=== PATIENT | female | born 1985 | race Caucasian/White ===

== ENCOUNTER 2020-06-17 11:06 | Emergency (ER) | payer BC ==
[2020-06-17] MEDS ORDERED: ONDANSETRON 4 MG/2 ML VIAL IVP STA (11:23)
[2020-06-17] MEDS ORDERED: SODIUM CHLORIDE 0.9% 500 ML 500 ML IV STA (11:23)
[2020-06-17 11:57] LABS: Basophils % (A) 0 %; Eosinophils # (A) 0.1 k/uL (0-0.7); Eosinophils % (A) 1 %; HCT 39.1 % (34.0-46.0); HGB 12.6 gm/dL (11.4-16.0); Lymphocytes % (A) 19 %; MCH 30.3 pg (25.0-35.0); MCHC 32.1 g/dL (31.0-37.0); MCV 94.2 fL (80.0-100.0); Mean Platelet Volume 7.2; Monocytes # (A) 0.4 k/uL (0-1.0); Monocytes % (A) 8 %; Neutrophils # (A) 3.7 k/uL (1.3-7.7); Neutrophils % (A) 68 %; Platelet Count 194 k/uL (150-450); RBC 4.15 m/uL (3.80-5.40); RDW 12.8 % (11.5-15.5); WBC 5.4 k/uL (3.8-10.6)
[2020-06-17 11:58] LABS: Appearance,Urine Clear (Clear); Bilirubin,Urine Negative (Negative); Blood,Urine Negative (Negative); Color,Urine Light Yellow; Glucose,Urine (UA) Negative (Negative); Ketones,Urine Negative (Negative); Leukocyte Esterase,Urine Negative (Negative); Nitrite,Urine Negative (Negative); Protein,Urine Negative (Negative); Specific Gravity,Urine 1.009 (1.001-1.035); Urobilinogen,Urine <2.0 mg/dL (<2.0)
--- NOTE | 2020-06-17 12:06 | ED ---
Abdominal Pain HPI - General Chief Complaint: Abdominal Pain Stated Complaint: abd pain/diarrhea Time Seen by Provider: 06/17/20 11:23 Source: patient Mode of arrival: ambulatory Limitations: no limitations - History of Present Illness Initial Comments: 35-year-old female presented today for chief complaint of diarrhea since Wednesday. Patient states she has had loose stool since Wednesday, she states she's had what she felt was a fever. Patient is not recorded temperature. Patient had one episode of vomiting she endorses nausea. Patient states that she has occasional right upper quadrant abdominal pain. That is not present currently. Patient denies any chest pain shortness of breath. She denies any rashes, or URI symptoms. Patient has no additional complaints. Upon arrival patient appears well there is no signs of acute distress. - Related Data Home Medications Medication Instructions Recorded Confirmed Hlo-Esxm-Brvbg Acid 1 tab PO DAILY 06/18/16 08/18/16 [-U Capsule (formulary)] Previous Rx's Medication Instructions Recorded Acetaminophen-Codeine 300-30mg 2 each PO Q4HR PRN #20 tab 08/20/16 [Tylenol w/codeine #3] Allergies Allergy/AdvReac Type Severity Reaction Status Date / Time No Known Allergies Allergy Verified 06/17/20 11:10 Review of Systems ROS Statement: Those systems with pertinent positive or pertinent negative responses have been documented in the HPI. ROS Other: All systems not noted in ROS Statement are negative. Past Medical History Past Medical History: Asthma History of Any Multi-Drug Resistant Organisms: MRSA Date of last positivie culture/infection: 08/22/19 MDRO Source:: KNEE Past Surgical History: Section Additional Past Surgical History / Comment(s): wisdom teeth Past Psychological History: No Psychological Hx Reported Smoking Status: Current every day smoker Past Alcohol Use History: Occasional Past Drug Use History: None Reported - Past Family History Mother Family Medical History: Hypertension Additional Family Medical History / Comment(s): osteopenia, hypertension Father Family Medical History: Congestive Heart Failure (CHF), COPD, Coronary Artery Disease (CAD), Hypertension Additional Family Medical History / Comment(s): hypertension, diabetes, chf, copd, emphysema, ex-smoker General Exam - General Exam Comments Initial Comments: General: The patient is awake and alert, in no distress Eye: Pupils are equal, round and reactive to light, extra-ocular movements are intact. No nystagmus. There is normal conjunctiva bilaterally. No signs of icterus. Ears, nose, mouth and throat: There are moist mucous membranes and no oral lesions. Neck: The neck is supple, there is no tenderness or JVD. Cardiovascular: There is a regular rate and rhythm. No murmur, rub or gallop is appreciated. Respiratory: Lungs are clear to auscultation, respirations are non-labored, br eath sounds are equal. No wheezes, stridor, rales, or rhonchi. Gastrointestinal: Soft, non-distended, mild RUQ tenderness, very minimal at this time, abdomen without masses or organomegaly noted. There is no rebound or guarding present. Musculoskeletal: Normal ROM, no tenderness. Strength 5/5. Sensation intact. Pulses equal bilaterally 2+. Neurological: A&O x 3. CN II-XII intact grossly, There are no obvious motor or sensory deficits. Coordination appears grossly intact. Speech is normal. Skin: Skin is warm and dry and no rashes or lesions are noted. Psychiatric: Cooperative, appropriate mood & affect, normal judgment. Limitations: no limitations Course Vital Signs 06/17/20 06/17/20 11:09 12:45 Temperature 98.5 F 99.3 F Pulse Rate 105 H 90 Respiratory 20 18 Rate Blood Pressure 103/64 104/62 O2 Sat by Pulse 99 99 Oximetry Medical Decision Making - Medical Decision Making Nontoxic well-appearing 35yo female present for diarrhea on and off abdominal pain of the upper quadrants. US RUQ (-) for GB disease, minimal to no pain on exam. States not currently occuring. Patient labs stable. HcG (-). Urine un remarkable. Patient nontoxic. Cannot provide stool sample. Patient given outpatient RX> Patient discharged appearing well. - Lab Data Result diagrams: 06/17/20 11:37 06/17/20 11:37 Lab Results 06/17/20 06/17/20 06/17/20 Range/Units 11:37 11:37 11:37 WBC 5.4 (3.8-10.6) k/uL RBC 4.15 (3.80-5.40) m/uL Hgb 12.6 (11.4-16.0) gm/dL Hct 39.1 (34.0-46.0) % MCV 94.2 (80.0-100.0) fL MCH 30.3 (25.0-35.0) pg MCHC 32.1 (31.0-37.0) g/dL RDW 12.8 (11.5-15.5) % Plt Count 194 (150-450) k/uL Neutrophils % 68 % Lymphocytes % 19 % Monocytes % 8 % Eosinophils % 1 % Basophils % 0 % Neutrophils # 3.7 (1.3-7.7) k/uL Lymphocytes # 1.0 (1.0-4.8) k/uL Monocytes # 0.4 (0-1.0) k/uL Eosinophils # 0.1 (0-0.7) k/uL Basophils # 0.0 (0-0.2) k/uL Sodium (137-145) mmol/L Potassium (3.5-5.1) mmol/L Chloride (98-107) mmol/L Carbon Dioxide (22-30) mmol/L Anion Gap mmol/L BUN (7-17) mg/dL Creatinine (0.52-1.04) mg/dL Est GFR (CKD-EPI)AfAm (>60 ml/min/1.73 sqM) Est GFR (CKD-EPI)NonAf (>60 ml/min/1.73 sqM) Glucose (74-99) mg/dL Calcium (8.4-10.2) mg/dL Total Bilirubin (0.2-1.3) mg/dL AST (14-36) U/L ALT (4-34) U/L Alkaline Phosphatase (38-126) U/L Total Protein (6.3-8.2) g/dL Albumin (3.5-5.0) g/dL Amylase (30-110) U/L Lipase (23-300) U/L Urine Color Light Yellow Urine Appearance Clear (Clear) Urine pH 7.0 (5.0-8.0) Ur Specific [place] 1.009 (1.001-1.035) Urine Protein Negative (Negative) Urine Glucose (UA) Negative (Negative) Urine Ketones Negative (Negative) Urine Blood Negative (Negative) Urine Nitrite Negative (Negative) Urine Bilirubin Negative (Negative) Urine Urobilinogen <2.0 (<2.0) mg/dL Ur Leukocyte Esterase Negative (Negative) Urine HCG, Qual Not Detected (Not Detectd) 06/17/20 Range/Units 11:37 WBC (3.8-10.6) k/uL RBC (3.80-5.40) m/uL Hgb (11.4-16.0) gm/dL Hct (34.0-46.0) % MCV (80.0-100.0) fL MCH (25.0-35.0) pg MCHC (31.0-37.0) g/dL RDW (11.5-15.5) % Plt Count (150-450) k/uL Neutrophils % % Lymphocytes % % Monocytes % % Eosinophils % % Basophils % % Neutrophils # (1.3-7.7) k/uL Lymphocytes # (1.0-4.8) k/uL Monocytes # (0-1.0) k/uL Eosinophils # (0-0.7) k/uL Basophils # (0-0.2) k/uL Sodium 136 L (137-145) mmol/L Potassium 4.0 (3.5-5.1) mmol/L Chloride 105 (98-107) mmol/L Carbon Dioxide 26 (22-30) mmol/L Anion Gap 5 mmol/L BUN 6 L (7-17) mg/dL Creatinine 0.71 (0.52-1.04) mg/dL Est GFR (CKD-EPI)AfAm >90 (>60 ml/min/1.73 sqM) Est GFR (CKD-EPI)NonAf >90 (>60 ml/min/1.73 sqM) Glucose 112 H (74-99) mg/dL Calcium 8.5 (8.4-10.2) mg/dL Total Bilirubin 0.4 (0.2-1.3) mg/dL AST 25 (14-36) U/L ALT 17 (4-34) U/L Alkaline Phosphatase 56 (38-126) U/L Total Protein 6.4 (6.3-8.2) g/dL Albumin 3.5 (3.5-5.0) g/dL Amylase 40 (30-110) U/L Lipase 104 (23-300) U/L Urine Color Urine Appearance (Clear) Urine pH (5.0-8.0) Ur Specific [place] (1.001-1.035) Urine Protein (Negative) Urine Glucose (UA) (Negative) Urine Ketones (Negative) Urine Blood (Negative) Urine Nitrite (Negative) Urine Bilirubin (Negative) Urine Urobilinogen (<2.0) mg/dL Ur Leukocyte Esterase (Negative) Urine HCG, Qual (Not Detectd) Disposition Clinical Impression: Diarrhea, Abdominal pain Disposition: HOME SELF-CARE Condition: Good Instructions (If sedation given, give patient instructions): Acute Diarrhea (ED), Abdominal Pain (ED) Additional Instructions: Please use medication as discussed. Please follow-up with family doctor in the next 2 days. Please return to emergency room if the symptoms increase or worsen or for any other concerns. Is patient prescribed a controlled substance at d/c from ED?: No Referrals: Nikolas Caban MD [Primary Care Provider] - 1-2 days Time of Disposition: 12:51
[2020-06-17 12:10] LABS: ALT 17 U/L (4-34); AST 25 U/L (14-36); African American GFR (CKD) >90 (>60 ml/min/1.73 sqM); Albumin 3.5 g/dL (3.5-5.0); Alkaline Phosphatase 56 U/L (38-126); Amylase 40 U/L (30-110); Anion Gap 5 mmol/L; Blood Urea Nitrogen 6 mg/dL (7-17); Calcium 8.5 mg/dL (8.4-10.2); Carbon Dioxide 26 mmol/L (22-30); Chloride 105 mmol/L (98-107); Glucose 112 mg/dL (74-99); Lipase 104 U/L (23-300); Non-African American GFR(CKD) >90 (>60 ml/min/1.73 sqM); Sodium 136 mmol/L (137-145); Total Bilirubin 0.4 mg/dL (0.2-1.3); Total Protein 6.4 g/dL (6.3-8.2)
[2020-06-17] MEDS ORDERED: SODIUM CHLORIDE 0.9% 1,000 ML IV SCH (12:15)
--- NOTE | 2020-06-17 12:40 | US ---
EXAMINATION TYPE: US abdomen limited DATE OF EXAM: 06/17/2020 COMPARISON: 08/02/2013 CLINICAL HISTORY: RUQ pain. Hypogastric pain, diarrhea, ate at 10-10:30 am. EXAM MEASUREMENTS: Liver Length: 15.4 cm Gallbladder Wall: 0.2 cm CBD: 0.2 cm Right Kidney: 10.2 x 5.4 x 3.8 cm Pancreas: Limited by bowel gas, tail obscured by overlying bowel gas Liver: wnl Gallbladder: wnl Evidence for sonographic Bajwa's sign: no CBD: wnl Right Kidney: No hydronephrosis or masses seen Bowel is noted at midline abd. area of pain IMPRESSION: 1. No acute process as visualized.
[2020-06-17 12:46] VITALS: BP 104/62; PULSE 90; RESP 18; TEMP 99.3
== END 2020-06-17 13:00 | disposition home or self-care (01) ==
LOC: EC 11:06
DX: R19.7 Diarrhea, unspecified (principal); R10.11 Right upper quadrant pain; F17.200 Nicotine dependence, unspecified, uncomplicated
CPT/HCPCS: 36415; 76705; 80053; 81003; 81025; 82150; 83690; 85025; 96360; 99284

== ENCOUNTER → 2021-11-14 | Outpatient (CLI) | payer BC ==
--- NOTE | 2021-11-17 10:53 | USB ---
Reason for exam: clinical finding. History: Family history of breast cancer in maternal grandmother. Indicated problem(s): lump or thickening in the left breast. Physical Findings: Nurse Summary: Patient complains of left breast lumps x 1 months with constant lateral pain, pea sized circumscribed bodules left breast 10 o'clock, 3 o'clock, pain lateral (nurse mj). US Breast LT Left complete breast ultrasound includes all four quadrants, the retroareolar region and axilla. Finding demonstrates no cystic or solid lesion seen. These results were verbally communicated with the patient and result sheet given to the patient on 11/14/21. ASSESSMENT: Incomplete: need additional imaging evaluation, BI-RAD 0 RECOMMENDATION: Follow-up diagnostic mammogram of both breasts.
--- NOTE | 2021-11-17 10:54 | MM ---
Reason for exam: clinical finding. Baseline mammogram. History: Family history of breast cancer in maternal grandmother. MG 3D Diag Mammo W/Cad ADELA Bilateral CC, MLO, and XCCL view(s) were taken. The breast tissue is heterogeneously dense. This may lower the sensitivity of mammography. There is no discrete abnormality including area of concern left breast. These results were verbally communicated with the patient and result sheet given to the patient on 11/14/21. ASSESSMENT: Benign, BI-RAD 2 RECOMMENDATION: Routine screening mammogram of both breasts in 1 year. Manage patient on a clinical basis.
== END | disposition home or self-care (01) ==
LOC: RADUSWWP 09:00
PROVIDERS: ATTEND Family Medicine
DX: R92.8 Other abnormal and inconclusive findings on diagnostic imaging of breast (principal); Z80.3 Family history of malignant neoplasm of breast
CPT/HCPCS: 77062; 77066

== ENCOUNTER → 2022-10-26 | Outpatient (CLI) | payer BC ==
--- NOTE | 2022-11-30 12:32 | EM ---
EVENT MONITOR INDICATION: Palpitations. This is a 30-day event monitor, of which the patient only wore it for 10 days. The provided rhythm strips show that the patient is in sinus rhythm with episodes of sinus tachycardia with a heart rate of 105 beats per minute. HARIS / YULISA: [id number] /
== END | disposition home or self-care (01) ==
LOC: RADECHMAIN 08:03
PROVIDERS: ATTEND Family Medicine
DX: R00.2 Palpitations (principal); R00.0 Tachycardia, unspecified
CPT/HCPCS: 93270

== ENCOUNTER → 2024-08-22 | Outpatient (CLI) | payer BC ==
--- NOTE | 2024-08-24 09:49 | US ---
EXAMINATION TYPE: US transvaginal DATE OF EXAM: 08/22/2024 COMPARISON: NONE CLINICAL INDICATION: Female, 39 years old with history of N92.0 EXCESSIVE AND FREQUENT MENSTRUATION W ITH REG; Bleeding x 6 weeks per patient. Hx csections. TECHNIQUE: Transvaginal (TV). Transvaginal grayscale, color Doppler and spectral Doppler sonographi c images of the pelvis were acquired. FINDINGS: Date of LMP: 07/09/24, EXAM MEASUREMENTS: Uterus: 7.8 x 3.8 x 3.4 cm Endometrial Stripe: 0.5 cm Right Ovary: 2.9 x 1.6 x 1.8 cm Left Ovary: 2.9 x 2.4 x 1.4 cm 1. Uterus: Anteverted seen. 2. Endometrium: Trace fluid seen. Echogenic lesion seen with vascular stalk = 1.1 x 1.6 x 1.0 cm 3. Right Ovary: follicles seen 4. Left Ovary: follicles seen. Complex lesion with vascularity= 1.5 x 1.4 x 1.5 cm possibly represe nting corpus luteum. 5. Bilateral Adnexa: wnl 6. Posterior cul-de-sac: trace fluid seen IMPRESSION: 1. Endometrial masslike area possibly representing a polyp given a vascular stalk. Direct visualizat ion recommended. 2. No evidence for additional acute process. [facility], , 08/24/2024 9:47 AM
== END ==
LOC: RADUSWWP 14:49
PROVIDERS: ATTEND Family Medicine
DX: N92.0 Excessive and frequent menstruation with regular cycle (principal)
CPT/HCPCS: 76830

== ENCOUNTER → 2024-09-27 | Outpatient (CLI) | payer BC ==
[2024-09-27 15:21] LABS: Basophils # (A) 0.01 X 10*3/uL (0.00-0.10); Basophils % (A) 0.2 %; Eosinophils # (A) 0.07 X 10*3/uL (0.04-0.35); Eosinophils % (A) 1.3 %; HCT 42.1 % (37.2-50.0); HGB 13.7 g/dL (12.0-17.0); Lymphocytes # (A) 1.56 X 10*3/uL (0.90-5.00); Lymphocytes % (A) 29.4 %; MCH 29.5 pg (27.0-32.0); MCHC 32.5 g/dL (32.0-37.0); MCV 90.7 FL (80.0-97.0); Mean Platelet Volume 10.4 FL (9.5-12.2); Monocytes # (A) 0.61 X 10*3/uL (0.20-1.00); Monocytes % (A) 11.5 %; NRBC Per 100 WBC 0 X 10*3/uL (0.00-0.01); Neutrophils # (A) 3.04 X 10*3/uL (1.80-7.70); Neutrophils % (A) 57.2 %; Platelet Count 239 X 10*3/uL (140-440); RBC 4.64 X 10*6/uL (4.10-5.60); RDW 13.2 % (11.5-14.5); WBC 5.31 X 10*3/uL (4.50-10.00)
== END | disposition home or self-care (01) ==
LOC: LABPAT 12:03
PROVIDERS: ATTEND Obstetrics & Gynecology Obstetrics
DX: Z01.812 Encounter for preprocedural laboratory examination (principal)
CPT/HCPCS: 85025

== ENCOUNTER 2024-10-13 08:56 | Day surgery (SDC) | payer BC ==
[2024-10-10 12:45] VITALS: BMI 29.7
[~2024-10-13 08:56] MED LIST: HYDROmorphone 0.5 MG/0.5 ML SYRINGE IVP PRN; Pre Op ABX Message 1 EACH MISC MISCELLANE ONE; fentaNYL (PF) 50 MCG/ML 2 ML AMP IVP PRN
[2024-10-13] MEDS: IV FLUID CONTINUATION 1,000 ML IV ONE (09:49)
[2024-10-13] MEDS: LACTATED RINGERS 1,000 ML IV SCH (09:56)
[2024-10-13] MEDS: SCOPOLAMINE 1 MG/72 HR PATCH TRANSDERM ONE (09:56)
[2024-10-13] MEDS: DEXAMETHASONE SOD PHOSPHATE 4 MG/ML 1 ML VIAL IV ONE (09:56)
[2024-10-13] MEDS: ONDANSETRON 4 MG/2 ML VIAL IVP ONE (09:57)
[2024-10-13] MEDS ORDERED: LIDOCAINE 1% INJ 10MG/ML (20 ML MDV) ONE (10:21)
[2024-10-13] MEDS ORDERED: KETOROLAC 15 MG/ML 1 ML VIAL ONE (10:21)
[2024-10-13] MEDS ORDERED: PROPOFOL 10 MG/ML 20 ML VIAL IV ONE (10:21)
[2024-10-13] MEDS ORDERED: MIDAZOLAM 2 MG/2 ML VIAL ONE (10:21)
[2024-10-13] MEDS ORDERED: SUCCINYLCHOLINE CHLORIDE 200 MG/10 ML VIAL IV ONE (10:21)
[2024-10-13] MEDS ORDERED: fentaNYL (PF) 50 MCG/ML 2 ML AMP ONE (10:21)
--- NOTE | 2024-10-13 10:56 | P.OP ---
Date of Procedure: 10/13/24 Preoperative Diagnosis: Endometrial polyp, abnormal uterine bleeding Postoperative Diagnosis: Same Procedure(s) Performed: Hysteroscopy, dilation and curettage Anesthesia: FREDIA Surgeon: Marlene Bland Estimated Blood Loss (ml): 5 IV fluids (ml): 600 Urine output (ml): 100 Pathology: other (Endometrial curettings) Condition: stable Disposition: PACU Indications for Procedure: Abnormal uterine bleeding, ultrasound with endometrial polyp Operative Findings: Endometrial polyp Description of Procedure: Patient was taken back to the operating suite where general anesthesia was obtained without difficulty by the anesthesia department. She was prepped and draped in the normal sterile fashion in the dorsal lithotomy position. A right upper catheter was used to drain the bladder of clear yellow urine. A weighted speculum was placed in the posterior vaginal vault, the anterior lip of the cervix was visualized and grasped with a single-tooth tenaculum. Endocervical canal was then serially dilated. The hysteroscope was placed through the cervix and toward the endometrial cavity. An intact cavity was appreciated with a large endometrial polyp. Hysteroscope was removed. A sharp curettage was then performed until a gritty texture was noted in all 4 quadrants of the endometrial cavity. The large polyp was removed intact with fragments of endometrial tissue appreciated. The single-tooth tenaculum was taken off of the anterior lip the cervix. All instruments removed from the patient's vaginal vault. Specimen was sent off to pathology for analysis. All counts were noted be correct x 2. Patient tolerated procedure well and was taken to the recovery awake in stable condition.
[2024-10-13 11:03] VITALS: TEMP 97.5
[2024-10-13 11:48] VITALS: RESP 16
[2024-10-13 11:52] VITALS: BP 113/74; PULSE 65
== END 2024-10-13 12:30 | disposition home or self-care (01) ==
LOC: OR 08:56
PROVIDERS: ATTEND Obstetrics & Gynecology Obstetrics
DX: N84.0 Polyp of corpus uteri (principal); N93.9 Abnormal uterine and vaginal bleeding, unspecified; J45.909 Unspecified asthma, uncomplicated; F17.210 Nicotine dependence, cigarettes, uncomplicated; K21.9 Gastro-esophageal reflux disease without esophagitis; L30.9 Dermatitis, unspecified; Z79.899 Other long term (current) drug therapy
CPT/HCPCS: 58558; J1100; J2405; 81025